=== PATIENT | female | born 1995 | race African-American/Black ===

== ENCOUNTER 2025-04-22 13:36 | Outpatient (CLI) | payer BC, SELFPAY ==
--- NOTE | ~2025-04-22 | US_ITS ---
EXAMINATION: US OB transvaginal DATE: 04/22/2025 13:53 INDICATION: Suspected ectopic TECHNIQUE: Real-time transabdominal and transvaginal obstetric ultrasound. FINDINGS: No prior studies for comparison. The uterus measures 10.4 x 5.4 x 7.6 cm. There is an intrauterine gestational sac, with pole identified. The crown rump length measures 2.9 cm, which correlates with a estimated gestational age of 6 weeks 6 days. heart tones are identified measuring 135 BPM. There is a small subchorionic hemorrhage measuring 11 x 4 x 9 mm. Left ovary is normal. Right ovary not visualized. IMPRESSION: 1. SL IUP with an EGA of 6 weeks, 6 days (EDC by current ultrasound of 12/10/2025). 2: Small subchorionic hemorrhage. Reviewed, dictated and finalized at location O. ET UPHOLSTERER IMPRESSION: 1. SL IUP with an EGA of 6 weeks, 6 days (EDC by current ultrasound of ). 2: Small subchorionic hemorrhage.
== END 2025-04-22 13:37 | disposition home or self-care (01) ==
LOC: MICIMG 13:38
DX: Z03.72 Encounter for suspected placental problem ruled out (principal); Z3A.01 Less than 8 weeks gestation of pregnancy
CPT/HCPCS: 76817